=== PATIENT | male | born 1990 | race Two or more races ===

== ENCOUNTER 2017-01-02 08:14 | Emergency (ER) | payer SELFPAY ==
[~2017-01-02] VITALS: Ht 167.6 cm; Wt 79.4 kg
[~2017-01-02 08:14] MED LIST: ADVIL200 M3 PO; BACTRIM DS1 TA1 PO; NORCO 5/325 TAB1 TAB PO; TYLENOL325 M2 PO
== END 2017-01-02 09:50 ==
LOC: EDMED 08:14
PROC: 2W3RX1Z Immobilization of Left Lower Leg using Splint (ICD-10-PCS; principal; 2017-01-02)
DX: S93.402A Sprain of unspecified ligament of left ankle, initial encounter (principal); X50.1XXA Overexertion from prolonged static or awkward postures, initial encounter; Y92.019 Unspecified place in single-family (private) house as the place of occurrence of the external cause